=== PATIENT | female | born 1935 | race Caucasian/White ===

== ENCOUNTER 2024-06-06 15:58 | Inpatient (IN) | payer MEDICARE, MEDICAID ==
[~2024-06-06] VITALS: Ht 162.6 cm; Wt 54.9 kg
[2024-06-06 16:51] LABS: EOSINOPHILS % 3.9 % (0.0-5.0); HEMATOCRIT. 36.3 % (36.0-48.0); HEMOGLOBIN. 12.1 g/dL (12.0-16.0); LYMPHOCYTES % 30.1 % (20.0-50.0); MEAN CORPUSCULAR HEMOGLOBIN 31.7 pg (28.0-32.0); MEAN CORPUSCULAR HGB CONC 33.2 g/dL (31.0-37.0); MEAN CORPUSCULAR VOLUME 95.5 fL (81.0-99.0); MEAN PLATELET VOLUME 10.1 fl (7.4-10.4); MONOCYTES % 11.1 % (2.0-8.0); NEUTROPHILS % 53.9 % (40.0-76.0); PLATELET 136 x1000/uL (130-400); RED BLOOD CELL COUNT 3.81 mill/uL (4.2-5.4); RED CELL DISTRIBUTION WIDTH 13.6 % (11.6-14.6); WHITE BLOOD COUNT 3.7 x1000/uL (4.5-11.0)
[2024-06-06 16:56] LABS: CHLORIDE 109 mEq/L (98-107); SODIUM 140 mEq/L (136-145)
[2024-06-06 16:57] LABS: CARBON DIOXIDE 24 mEq/L (21-32)
[2024-06-06 17:02] LABS: CREATININE 0.9 mg/dL (0.6-1.0); GLUCOSE 81 mg/dL (70-105); TROPONIN I HIGH SENSITIVITY 20 ng/L (3.0-34); UREA NITROGEN BLOOD 34 mg/dL (9-23)
[2024-06-06] MEDS: SODIUM CHLORIDE 0.9% 1,000 ML IV ONE (17:46)
[2024-06-06] MEDS ORDERED: DOCUSATE SODIUM 100MG CAPSULE PO PRN (20:15)
[2024-06-06] MEDS ORDERED: GUAIFENESIN 200MG/10ML SUGAR FREE UDC PO PRN (20:15)
[2024-06-06] MEDS ORDERED: CLONIDINE 0.1MG TABLET PO PRN (20:15)
[2024-06-06] MEDS ORDERED: ACETAMINOPHEN 325MG TABLET PO PRN (20:15)
[2024-06-06] MEDS ORDERED: ONDANSETRON HCL 4MG/2ML INJ IV PRN (20:15)
[2024-06-06] MEDS ORDERED: MAGNESIUM/ALUMINUM HYDROXIDE/SIMETHICONE 30ML UDC PO PRN (20:15)
[2024-06-06] MEDS ORDERED: NITROGLYCERIN 0.4MG TABLET SL SL PRN (20:15)
[2024-06-06] MEDS ORDERED: KETOROLAC 15MG/ML VIAL IV PRN (20:44)
[2024-06-06] MEDS ORDERED: IPRATROPIUM/ALBUTEROL 0.5-3(2.5)MG/3ML NEB NEB PRN (20:45)
[2024-06-06 21:09] LABS: IRON 80 ug/dL (50-170)
[2024-06-06 21:10] LABS: TRIGLYCERIDE 154 mg/dL (0-150)
[2024-06-06 21:11] LABS: LDL CHOLESTEROL 80 mg/dL (5-100)
[2024-06-06 21:12] LABS: CHOLESTEROL 173 mg/dL (<200); HDL CHOLESTEROL 54 mg/dL (>65); TOTAL IRON BINDING CAPACITY 300 ug/dl (250-425)
[2024-06-06 21:15] LABS: FOLIC ACID (FOLATE) SERUM > 20.00 ng/mL (>5.38); T4 FREE 1.32 ng/dL (0.89-1.76); THYROID STIMULATING HORMONE 9.93 uIU/mL (0.55-4.78); VITAMIN B12 SERUM 170 pg/mL (211-911)
[2024-06-06] MEDS: FAMOTIDINE 20MG TABLET PO SCH (21:40)
[2024-06-06] MEDS: ASCORBIC ACID 500 MG TABLET PO SCH (21:41)
[2024-06-06 23:08] LABS: CREATINE KINASE MB FRACTION 10.7 ng/mL (0.5-3.6)
[2024-06-07 00:55] VITALS: BP 107/42; RESP 16; TEMP 36.114; O2SAT 100
[2024-06-07 07:49] LABS: CHLORIDE 112 mEq/L (98-107); POTASSIUM 4.3 mEq/L (3.5-5.1); SODIUM 142 mEq/L (136-145)
[2024-06-07 07:52] LABS: CALCIUM 9.3 mg/dL (8.7-10.4); CARBON DIOXIDE 22 mEq/L (21-32)
[2024-06-07 07:55] LABS: BASOPHILS % 1.1 % (0.0-2.0); CREATINE KINASE MB FRACTION 10.8 ng/mL (0.5-3.6); DIFFERENTIAL COMMENT 0; EOSINOPHILS % 3.4 % (0.0-5.0); HEMATOCRIT. 37.4 % (36.0-48.0); HEMOGLOBIN. 12.3 g/dL (12.0-16.0); LYMPHOCYTES % 20.8 % (20.0-50.0); MEAN CORPUSCULAR HEMOGLOBIN 31.3 pg (28.0-32.0); MEAN CORPUSCULAR HGB CONC 32.8 g/dL (31.0-37.0); MEAN CORPUSCULAR VOLUME 95.2 fL (81.0-99.0); MEAN PLATELET VOLUME 10.7 fl (7.4-10.4); MONOCYTES % 7.1 % (2.0-8.0); NEUTROPHILS % 67.6 % (40.0-76.0); PLATELET 128 x1000/uL (130-400); RED BLOOD CELL COUNT 3.92 mill/uL (4.2-5.4); RED CELL DISTRIBUTION WIDTH 13.7 % (11.6-14.6); TROPONIN I HIGH SENSITIVITY 17 ng/L (3.0-34); WHITE BLOOD COUNT 3.7 x1000/uL (4.5-11.0)
[2024-06-07 07:57] LABS: CREATININE 0.7 mg/dL (0.6-1.0); GLUCOSE 80 mg/dL (70-105); UREA NITROGEN BLOOD 22 mg/dL (9-23)
[2024-06-07 07:58] LABS: ALANINE AMINOTRANSFERASE < 7 IU/L (10-49)
[2024-06-07 07:59] LABS: ALBUMIN 3.7 g/dL (3.2-4.8); ASPARTATE AMINOTRANSFERASE 21 IU/L (<34); BILIRUBIN TOTAL 0.3 mg/dL (0.1-1.0); CREATINE KINASE 117 IU/L (34-145); PHOSPHORUS 3.2 mg/dL (2.5-4.9); PROTEIN TOTAL 6.5 g/dL (6.0-8.3)
[2024-06-07 08:00] VITALS: BP 135/41; PULSE 71; RESP 17; TEMP 35.39172; O2SAT 99
[2024-06-07] MEDS: ENOXAPARIN 40MG/0.4ML SYR SUBCUT SCH (09:26)
[2024-06-07] MEDS: ZINC SULFATE 220 MG ( 50 ) CAPSULE PO SCH (09:27)
[2024-06-07] MEDS: CYANOCOBALAMIN 1000MCG/ML VIAL IM SCH (09:27)
[2024-06-07] MEDS: ASPIRIN 81MG EC TABLET PO SCH (09:27)
[2024-06-07] MEDS ORDERED: CHOL500010 PO (10:40)
[2024-06-07] MEDS ORDERED: LEVO50TA8 PO (10:40)
[2024-06-07] MEDS ORDERED: GABA-529 PO (10:40)
[2024-06-07] MEDS ORDERED: CELE-116 PO (10:40)
[2024-06-07] MEDS ORDERED: CYAN-50 PO (10:40)
[2024-06-07] MEDS ORDERED: ALEN70TA79 PO (10:40)
[2024-06-07] MEDS ORDERED: OLAN20TA79 PO (10:40)
[2024-06-07] MEDS ORDERED: TC025C15 TP (10:40)
[2024-06-07] MEDS ORDERED: NEO/5DRO7 EACHEYE (10:40)
[2024-06-07 10:47] VITALS: BP 142/78; PULSE 72; RESP 18; TEMP 36.696
[2024-06-07 12:00] VITALS: BP 113/39; PULSE 64; RESP 17; TEMP 35.22504; O2SAT 100
[2024-06-07 16:00] VITALS: BP 118/37; PULSE 60; RESP 17; TEMP 35.22504; O2SAT 99
[2024-06-07 20:00] VITALS: BP 118/56; PULSE 72; RESP 18; TEMP 36.50292; O2SAT 99
[2024-06-08] VITALS: BP 119/52; PULSE 81; RESP 18; TEMP 36.50292; O2SAT 100
[2024-06-08 04:00] VITALS: BP 122/77; PULSE 103; RESP 18; TEMP 36.55848; O2SAT 99
[2024-06-08 08:00] VITALS: BP 144/46; PULSE 82; RESP 18; TEMP 36.33624; O2SAT 97
[2024-06-08 12:00] VITALS: BP 121/58; PULSE 79; RESP 18; TEMP 36.114; O2SAT 99
[2024-06-08 16:00] VITALS: BP 135/50; PULSE 88; RESP 18; TEMP 37.05852; O2SAT 97
[2024-06-08] MEDS: ACETAMINOPHEN 325MG TABLET PO PRN (20:49)
[2024-06-08] MEDS: ZOLPIDEM TARTRATE 5MG TABLET PO PRN (20:50)
[2024-06-09] VITALS: BP 95/43; PULSE 86; RESP 18; TEMP 36.44736; O2SAT 99
[2024-06-09 04:00] VITALS: BP 137/58; PULSE 95; RESP 18; TEMP 36.50292; O2SAT 99
[2024-06-09 08:00] VITALS: BP 136/57; PULSE 85; RESP 20; TEMP 36.6696; O2SAT 99
[2024-06-09 12:00] VITALS: BP 100/57; PULSE 93; RESP 20; TEMP 36.114; O2SAT 96
[2024-06-09 16:00] VITALS: BP 113/40; PULSE 74; RESP 16; TEMP 36.50292; O2SAT 96
[2024-06-09 20:00] VITALS: BP 111/70; PULSE 75; RESP 18; TEMP 37.00296; O2SAT 98
[2024-06-10] VITALS (7 sets, daily range): BP systolic 110–132; BP diastolic 45–70; PULSE 59–82; RESP 18–20; TEMP 36.114–37.00296; O2SAT 95–99
[2024-06-10 13:14] LABS: HEMATOCRIT 31.8 % (36.0-48.0); HEMOGLOBIN 10.7 g/dL (12.0-16.0); MEAN CORPUSCULAR HEMOGLOBIN 32.1 pg (28.0-32.0); MEAN CORPUSCULAR HGB CONC 33.8 g/dL (31.0-37.0); MEAN CORPUSCULAR VOLUME 95.1 fL (81.0-99.0); PLATELET 131 x1000/uL (130-400); RED BLOOD CELL COUNT 3.34 mill/uL (4.2-5.4); RED CELL DISTRIBUTION WIDTH 13.9 % (11.6-14.6)
[2024-06-10 13:50] LABS: CHLORIDE 111 mEq/L (98-107); POTASSIUM 4.2 mEq/L (3.5-5.1); SODIUM 140 mEq/L (136-145)
[2024-06-10 13:51] LABS: CALCIUM 9.5 mg/dL (8.7-10.4); CARBON DIOXIDE 23 mEq/L (21-32)
[2024-06-10 13:56] LABS: GLUCOSE 102 mg/dL (70-105); UREA NITROGEN BLOOD 31 mg/dL (9-23)
[2024-06-10 13:57] LABS: ALANINE AMINOTRANSFERASE 12 IU/L (10-49)
[2024-06-10 13:58] LABS: ALBUMIN 3.6 g/dL (3.2-4.8); ASPARTATE AMINOTRANSFERASE 26 IU/L (<34); BILIRUBIN TOTAL 0.5 mg/dL (0.1-1.0); PHOSPHORUS 3.4 mg/dL (2.5-4.9); PROTEIN TOTAL 6.3 g/dL (6.0-8.3)
[2024-06-11] VITALS: BP 115/66; PULSE 82; RESP 20; TEMP 36.78072; O2SAT 97
[2024-06-11 04:00] VITALS: BP 120/80; PULSE 79; RESP 20; TEMP 36.78072; O2SAT 98
[2024-06-11 06:32] LABS: CARBON DIOXIDE 24 mEq/L (21-32); CHLORIDE 111 mEq/L (98-107); POTASSIUM 4.1 mEq/L (3.5-5.1); SODIUM 142 mEq/L (136-145)
[2024-06-11 06:34] LABS: CALCIUM 9.7 mg/dL (8.7-10.4)
[2024-06-11 06:38] LABS: CREATININE 0.8 mg/dL (0.6-1.0); GLUCOSE 95 mg/dL (70-105)
[2024-06-11 06:39] LABS: UREA NITROGEN BLOOD 29 mg/dL (9-23)
[2024-06-11 06:42] LABS: BASOPHILS % 1.1 % (0.0-2.0); DIFFERENTIAL COMMENT 0; EOSINOPHILS % 3.7 % (0.0-5.0); HEMATOCRIT. 33.1 % (36.0-48.0); HEMOGLOBIN. 10.8 g/dL (12.0-16.0); LYMPHOCYTES % 18.6 % (20.0-50.0); MEAN CORPUSCULAR HEMOGLOBIN 30.8 pg (28.0-32.0); MEAN CORPUSCULAR HGB CONC 32.6 g/dL (31.0-37.0); MEAN CORPUSCULAR VOLUME 94.6 fL (81.0-99.0); MEAN PLATELET VOLUME 10.4 fl (7.4-10.4); MONOCYTES % 9.5 % (2.0-8.0); NEUTROPHILS % 67.1 % (40.0-76.0); PLATELET 139 x1000/uL (130-400); RED CELL DISTRIBUTION WIDTH 13.8 % (11.6-14.6); WHITE BLOOD COUNT 4.3 x1000/uL (4.5-11.0)
[2024-06-11 08:00] VITALS: BP 127/55; PULSE 64; RESP 18; TEMP 36.55848; O2SAT 95
[2024-06-11] MEDS ORDERED: CYAN50007 MT (10:11)
[2024-06-11 12:00] VITALS: BP 145/55; PULSE 76; RESP 18; TEMP 36.50292; O2SAT 97
[2024-06-11 13:25] VITALS: BP 145/55; PULSE 76; TEMP 97.7; O2SAT 97
[2024-06-11 17:20] VITALS: BP 145/55; RESP 18; TEMP 36.50292; O2SAT 97
== END 2024-06-11 16:00 | disposition home health service (06) | DRG 640 ==
LOC: ER 15:58 → EDBD 19:30 → 5WST 19:30 → EDBEDREQ 19:43 → EDBEDREQTM 19:43 → EDBEDREQSVC 22:50 → 8WST 06-07 08:29
PROVIDERS: ADMIT Internal Medicine; ATTEND Internal Medicine
DX: E86.0 Dehydration (principal); G92.8 Other toxic encephalopathy; E53.8 Deficiency of other specified B group vitamins; F03.90 Unspecified dementia, unspecified severity, without behavioral disturbance, psychotic disturbance, mood disturbance, and anxiety; Z79.899 Other long term (current) drug therapy
CPT/HCPCS: 36415; 71045; 80048; 80053; 80061; 82550; 82553; 82607; 82746; 82962; 83036; 83540; 83550; 83605; 83735; 84100; 84145; 84439; 84443; 84484; 85025; 85027; 85379; 93005; 93306; 93970; 97162; 97166; 99285; C1893; J1650; J3420; J7030